=== PATIENT | male | born 1975 | race Caucasian/White ===

== ENCOUNTER 2018-02-22 08:12 | Emergency (ER) | payer BC ==
[2018-02-22 08:20] VITALS: BP 123/84
--- NOTE | 2018-02-22 10:29 | UC ---
Norma Carrasco Elizabeth, scribed for Brooklynn Nunez DO on 02/22/18 at 0853 . Skin Complaint HPI - HPI Summary HPI Summary: This patient is a 42 year old M presenting to [facility] with a chief complaint of circular rash on his right front chest and back since 2 days ago. The patient reports that the rash is slightly itchy, warm, and red but not painful. The patient rates the pain 0/10 in severity. Symptoms aggravated by nothing. Symptoms alleviated by nothing. Patient denies shortness of breath, cough, nausea, vomiting, fatigue, arthralgia, and myalgia. Patient denies any new exposures to plants, animals, or foods or change in laundry detergent or cloth. Patient notes that his two 19 month old sons have had an unknown viral infection for the past week, but have not developed a rash. The patient has hx of HTN and had radiation for Hodgkins Lymphoma in 2013. - History of Current Complaint Chief Complaint: [facility] Time Seen by Provider: 02/22/18 08:33 Stated Complaint: RASH Hx Obtained From: Patient Onset/Duration: Sudden Onset, Lasting Days - 2 days, Still Present Timing: Constant Onset Severity: Mild Current Severity: Mild Pain Intensity: 0 Pain Scale Used: 0-10 Numeric Location: Other - right chest, back Character: Pruritus, Redness Aggravating Factor(s): Nothing Alleviating Factor(s): Nothing Associated Signs & Symptoms: Positive: Rash. Negative: Nausea, Vomiting, Cough , Chest Pain - Allergy/Home Medications Allergies/Adverse Reactions: Allergies Allergy/AdvReac Type Severity Reaction Status Date / Time acetaminophen Allergy Difficulty Verified 02/22/18 08:20 Breathing/Wheezing Review of Systems Constitutional: Negative - NEGATIVE FATIGUE Skin: Rash - circular redness on right chest and back Respiratory: Negative - NEGATIVE COUGH, NEGATIVE SHORTNESS OF BREATH Gastrointestinal: Negative - NEGATIVE NAUSEA, NEGATIVE VOMITING Musculoskeletal: Negative - NEGATIVE MYALGIA, NEGATIVE ARTHRALGIA All Other Systems Reviewed And Are Negative: Yes PMH/Surg Hx/FS Hx/Imm Hx Cardiovascular History: Hypertension Other Cancer History: Hodgkin's Lymphoma (2013) Other History Of: Negative For: Anticoagulant Therapy - Surgical History Surgical History: Yes Surgery Procedure, Year, and Place: 03/2012 NECK BIOPSY x 2 [facility]. 03/19 INFUSION PORT INSERTION [facility] [place]. Stem cell transplant - Family History Known Family History: Positive: Cardiac Disease, Hypertension, Diabetes Family History: [place] - Social History Alcohol Use: Occasionally Alcohol Amount: 3-4 x's daily Substance Use Type: None Smoking Status (MU): Former Smoker Type: Cigarettes Amount Used/How Often: 5 years When Did the Patient Quit Smoking/Using Tobacco: quit in 20's Physical Exam - Summary Physical Exam Summary: Appearance: Well-Appearing, No Pain Distress, Well-Nourished Eyes: conjunctiva clear, no discharge ENT: Hearing grossly normal, no muffled/hoarse voice. Neck: Normal, Supple Respiratory/Lung Sounds: Lungs clear, Normal breath sounds, No respiratory distress, No accessory muscle use Cardiovascular: RRR, No murmur Musculoskeletal: Normal Neurological: Alert, muscle tone normal Psychiatric: Normal, age appropriate behavior Skin: Warm, Dry, patient has 2 lesions. One that is 17 cm in diameter and located on his upper back just to the right of midline and a 12cm lesion on the right side of his upper chest. The rash is well-defined, circular, macular, and erythematous. It is positive for calor and is not itchy and it is not painful Triage Information Reviewed: Yes Vital Signs: Initial Vital Signs Temp 98.5 F 02/22/18 08:16 Pulse 74 02/22/18 08:16 Resp 18 02/22/18 08:16 BP 123/84 02/22/18 08:16 Pulse Ox 99 02/22/18 08:16 Vital Signs Reviewed: Yes Course/Dx - Course Course Of Treatment: This patient is a 42 year old M reporting a slightly itchy and warm circular rash on his right front chest and back since 2 days ago. His rash does not definitively fit any rashes associated with Hodgkins Lymphoma found online. Patient will be discharged home with follow up from PCP, oncologist and accounting supervisor. The patient is agreeable with this plan. Medications reviewed. Allergies reviewed. - Diagnoses Provider Diagnoses: acute rash Discharge - Sign-Out/Discharge Documenting (check all that apply): Discharge/Admit/Transfer - Discharge Plan Condition: Stable Disposition: HOME Discharge Disposition Comment: discharge home Patient Education Materials: Diphenhydramine (By mouth), Hydrocortisone (On the skin), Acute Rash (ED) Referrals: Adriane Alves [Medical Doctor] - As Soon As Possible (Follow up in 1-2 days.) Jason Edwards MD [Primary Care Provider] - (follow up in 1-2 days) Additional Instructions: We are sorry that we are not able to identify the cause of your rash at this time. The most concerning possibility is that it may have something to do with your history of Hodgkin's Lymphoma. A search on the internet for rashes associated with Hodgkin's lymphoma did not reveal anything that looked definitively like what you have. That said, we would like you to call your oncologist tomorrow morning. You should probably be prepared to send him/her some pictures. We will also write you a referral to be seen by the accounting supervisor as soon as possible. Further, there is no harm in having your primary care provider also have a look at this rash. Tonight if you want to try taking a dose of Benadryl to see if it has an effect, or you could also try a quarter-sized patch of steroid cream. The documentation as recorded by the Norma cunninghma Elizabeth accurately reflects the service I personally performed and the decisions made by me, Brooklynn Nunez DO.
== END 2018-02-22 09:37 | disposition home or self-care (01) ==
LOC: UCEAST 08:12
DX: R21 Rash and other nonspecific skin eruption (principal); Z88.6 Allergy status to analgesic agent; I10 Essential (primary) hypertension; Z85.71 Personal history of Hodgkin lymphoma; Z87.891 Personal history of nicotine dependence; Z82.49 Family history of ischemic heart disease and other diseases of the circulatory system; Z83.3 Family history of diabetes mellitus; Z80.9 Family history of malignant neoplasm, unspecified
CPT/HCPCS: 99211; G0463